=== PATIENT | male | born 1985 | race Caucasian/White ===

== ENCOUNTER 2024-08-25 09:38 | Emergency (ER) | payer OTHER ==
[~2024-08-25] VITALS: Ht 185.4 cm; Wt 122.5 kg
[2024-08-25 09:50] VITALS: BP 144/114; TEMP 98.4
[2024-08-25] MEDS ORDERED: HYDR-4303 PO (10:19)
[2024-08-25] MEDS ORDERED: CEFD300C3 PO (10:20)
[2024-08-25 10:30] VITALS: O2SAT 100
== END 2024-08-25 10:31 | disposition home or self-care (01) ==
LOC: ER 09:38
DX: L03.312 Cellulitis of back [any part except buttock and flank] (principal); E11.9 Type 2 diabetes mellitus without complications; I10 Essential (primary) hypertension

== ENCOUNTER 2024-08-29 23:43 | Emergency (ER) | payer OTHER ==
[~2024-08-29] VITALS: Ht 185.4 cm; Wt 122.9 kg
[~2024-08-29 23:43] MED LIST: CEFD300C3 PO; HYDR-4303 PO
[2024-08-30 01:00] VITALS: BP 127/83; TEMP 98.4
[2024-08-30 01:17] VITALS: O2SAT 98
== END 2024-08-30 01:18 | disposition home or self-care (01) ==
LOC: ER 23:46
DX: L03.312 Cellulitis of back [any part except buttock and flank] (principal); L02.91 Cutaneous abscess, unspecified; E11.9 Type 2 diabetes mellitus without complications; I10 Essential (primary) hypertension; Z48.00 Encounter for change or removal of nonsurgical wound dressing

== ENCOUNTER 2024-10-27 12:43 | Emergency (ER) | payer OTHER ==
[~2024-10-27] VITALS: Ht 185.4 cm; Wt 112.5 kg
[2024-10-27 13:21] VITALS: BP 122/100; TEMP 97.9; O2SAT 99
[2024-10-27] MEDS ORDERED: SULF1TAB48 PO (14:35)
[2024-10-27] MEDS ORDERED: SULFAMETH/TRIMETH 800/160 MG 1 UDTAB TABLET ONE (14:50)
[2024-10-27] MEDS ORDERED: LIDOCAINE 1%-EPI 1:100,000 20 ML VIAL ONE (14:50)
[2024-10-27] MEDS: SULFAMETH/TRIMETH 800/160 MG 1 UDTAB TABLET PO ONE (14:54)
[2024-10-27] MEDS: LIDOCAINE 1%-EPI 1:100,000 50 ML VIAL IJ ONE (15:18)
== END 2024-10-27 15:19 | disposition home or self-care (01) ==
LOC: ER 12:43
DX: L02.811 Cutaneous abscess of head [any part, except face] (principal); B95.62 Methicillin resistant Staphylococcus aureus infection as the cause of diseases classified elsewhere; E11.9 Type 2 diabetes mellitus without complications; I10 Essential (primary) hypertension; Z79.4 Long term (current) use of insulin
CPT/HCPCS: 99283; 10060; J3490 ×2